=== PATIENT | female | born 1985 | race Caucasian/White ===

== ENCOUNTER 2019-06-04 15:48 | Emergency (ER) | payer OTHER ==
[~2019-06-04] VITALS: Ht 157.5 cm; Wt 49.9 kg
[2019-06-04 16:20] VITALS: BP 103/62
[2019-06-04] MEDS ORDERED: NEOMY/BACITR/POLYMYXIN OINT PACKET. TP ONE (16:30)
[2019-06-04] MEDS ORDERED: LIDOCAINE 1%/EPI 1:100,000 20 ML VIAL. SQ ONE (16:30)
[2019-06-04] MEDS ORDERED: HYDROcodone/APAP 7.5/325MG 1 TAB TABLET PO ONE (16:30)
[2019-06-04] MEDS ORDERED: DIPHTH,PERTUSS(ACELL),TET TOX 0.5 ML DISP.SYRIN. VAX IM ONE (16:45)
--- NOTE | 2019-06-04 17:59 | PHYS DOC ---
Past Medical History Past Medical History: No Pertinent History Past Surgical History: Alcohol Use: Occasionally Drug Use: None Adult General Chief Complaint Chief Complaint: ANIMAL BITE HPI HPI Patient is a 33 year old female accompanied by her partner, who presents to the emergency department with complaints of multiple abrasions and bites to her body after being mauled by a dog at work today. Patient states that a rescue boxer attacked her while she was caring for it at work this afternoon. She reports that her last tetanus shot was greater than 5 years ago. She complains of open wounds/bites to her left lower back, and left thigh. She complains of abrasions to her right abdomen, right mid back, right thigh, left thigh, and left lower leg. She currently rates her pain a 10 out of 10 on the pain scale, there are no alleviating factors. Review of Systems Review of Systems Constitutional: Denies fever or chills [] Eyes: Denies change in visual acuity, redness, or eye pain [] HENT: Denies nasal congestion or sore throat [] Respiratory: Denies cough or shortness of breath [] Cardiovascular: No additional information not addressed in HPI [] GI: Denies abdominal pain, nausea, vomiting, bloody stools or diarrhea [] : Denies dysuria or hematuria [] Musculoskeletal: Denies back pain or joint pain [] Integument: see HPI Neurologic: Denies headache, focal weakness or sensory changes [] Complete systems were reviewed and found to be within normal limits, except as documented in this note. Current Medications Current Medications Current Medications Medications (Trade) Dose Ordered Sig/Antonio Start Time Stop Time Status Last Admin Dose Admin Acetaminophen/ Hydrocodone Bitart (Lortab 7.5/325) 1 tab 1X ONCE 06/04/19 16:30 06/04/19 16:31 DC 06/04/19 16:38 1 TAB Diphtheria/ Tetanus/Acell Pertussis (Boostrix) 0.5 ml ONCE ONCE 06/04/19 16:45 06/04/19 16:47 DC 06/04/19 18:03 0.5 ML Lidocaine/ Epinephrine (LIDOCAINE 1%-EPI 1:100,000 Multi-Dose) 20 ml 1X ONCE 06/04/19 16:30 06/04/19 16:31 DC 06/04/19 16:38 20 ML Lorazepam (Ativan) 0.5 mg 1X ONCE 06/04/19 18:00 06/04/19 18:01 DC 06/04/19 18:03 0.5 MG Neomycin/ Polymyxin/ Bacitracin (Triple Antibiotic Ointment) 5 pkt 1X ONCE 06/04/19 16:30 06/04/19 16:31 DC 06/04/19 16:38 5 PKT Ondansetron HCl (Zofran Odt) 4 mg 1X ONCE 06/04/19 18:00 06/04/19 18:01 DC 06/04/19 18:03 4 MG Allergies Allergies Allergies Coded Allergies Type Severity Reaction Last Updated Verified No Known Drug Allergies 06/04/19 No Physical Exam Physical Exam Constitutional: Well developed, well nourished, moderate distress, non-toxic appearance. [] HENT: Normocephalic, atraumatic, bilateral external ears normal, nose normal. [] Eyes: PERRLA, EOMI, conjunctiva normal, no discharge. [] Neck: Normal range of motion, no stridor. [] Cardiovascular:Heart rate regular rhythm Lungs & Thorax: Respirations even and unlabored, no retractions, no respiratory distress Skin: Warm, dry; multiple abrasions with bruising noted to right lower abdomen, bilateral thighs, left lateral hip, left low back, and lower left leg; 3 open wounds noted to lateral left thigh: #1 distal measures 0.5 cm with active bleeding, #2 medial measures 1.5 cm no active bleeding, #3 proximal < 0.5 cm no active bleeding, 2 cm horizontal open wound to left low back no active bleeding Back: No bony tenderness Extremities: No bony tenderness or deformity, no cyanosis, no clubbing, ROM intact, no edema. [] Neurologic: Alert and oriented X 3, normal motor function, normal sensory function, no focal deficits noted. [] Psychologic: Affect anxious, judgement normal, mood normal. [] Current Patient Data Vital Signs Vital Signs Date Time Temp Pulse Resp B/P (MAP) Pulse Ox O2 Delivery O2 Flow Rate FiO2 06/04/19 16:38 16 98 Room Air 06/04/19 16:20 98.8 77 103/62 (76) 98.8 EKG EKG [] Radiology/Procedures Radiology/Procedures #1 Laceration Repair by me: Anesthesia: 1% lidocaine with epi locally Location: distal lateral left thigh Tendon/Joint/Nerves: No injury Foreign body: None detected after copious irrigation and exploration with surgical scrub and NS Technique: 1 loose Simple Interrupted Suture with 3-0 Ethilon Complexity: No subcutaneous sutures/mucosal repair/edge excision Post Closure Length: 0.5 cm #2 Laceration Repair by me: Anesthesia: 1% lidocaine with epi locally Location: medial lateral left thigh Tendon/Joint/Nerves: No injury Foreign body: None detected after copious irrigation and exploration with surgical scrub and NS Technique: 2 loose Simple Interrupted Sutures with 3-0 Ethilon Complexity: No subcutaneous sutures/mucosal repair/edge excision Post Closure Length: 1.5 cm #3 Laceration Repair by me: Anesthesia: 1% lidocaine with epi locally Location: left lower back Tendon/Joint/Nerves: No injury Foreign body: None detected after copious irrigation and exploration with surgical scrub and NS Technique: 2 loose Simple Interrupted Sutures with 3-0 Ethilon Complexity: No subcutaneous sutures/mucosal repair/edge excision Post Closure Length: 2 cm Patient's bleeding was easily controlled in the department and there is no indication of anemia. No evidence of compartment syndrome, neurologic injury, vascular injury, open j oint, tendon laceration, or foreign body. Patient is appropriate for outpatient follow up. Course & Med Decision Making Course & Med Decision Making Pertinent Labs and Imaging studies reviewed. (See chart for details) [] Dragon Disclaimer Dragon Disclaimer This electronic medical record was generated, in whole or in part, using a voice recognition dictation system. Departure Departure Impression: Primary Impression: Dog bite of multiple sites of left lower extremity Additional Impressions: Dog bite of right thigh without complication Dog bite of left hip Dog bite of multiple sites of right lower extremity Dog bite of multiple sites Need for Tdap vaccination Disposition: 01 HOME, SELF-CARE Condition: STABLE Referrals: NO PCP (PCP) Patient Instructions: Animal Bite, [id number], VIS, Tetanus, Diphtheria, and Pertussis (Tdap) - CDC Additional Instructions: Fill the prescriptions and use them as directed. Keep the areas clean and dry, change the dressings twice daily and as needed and apply antibiotic ointment. Apply ice to sore areas as needed for comfort. Return to the ER in 10 days to have sutures removed, sooner if you develop a fever, redness, warmth, or pus drainage from the sites. Scripts Hydrocodone Bit/Acetaminophen (HYDROCODONE-APAP 5-325 ) 1 Tab Tablet 1 TAB PO PRN Q6HRS PRN for PAIN for 3 Days, #12 TAB 0 Refills Prov: SHORTY ROBERTSON APRN 06/04/19 Amoxicillin/Potassium Clav (AUGMENTIN 875-125 TABLET) 1 Each Tablet 1 TAB PO BID, #14 TAB 0 Refills Prov: SHORTY ROBERTSON APRN 06/04/19 Problem Qualifiers Primary Impression: Dog bite of multiple sites of left lower extremity Encounter type: initial encounter Qualified Codes: S81.852A - Open bite, left lower leg, initial encounter; W54.0XXA - Bitten by dog, initial encounter Additional Impressions: Dog bite of right thigh without complication Encounter type: initial encounter Qualified Codes: S71.151A - Open bite, right thigh, initial encounter; W54.0XXA - Bitten by dog, initial encounter Dog bite of left hip Encounter type: initial encounter Qualified Codes: S71.052A - Open bite, left hip, initial encounter; W54.0XXA - Bitten by dog, initial encounter Dog bite of multiple sites of right lower extremity Encounter type: initial encounter Qualified Codes: S81.851A - Open bite, right lower leg, initial encounter; W54.0XXA - Bitten by dog, initial encount er SHORTY ROBERTSON APRN Jun 04, 2019 17:59
[2019-06-04] MEDS ORDERED: ONDANSETRON ODT 4 MG TAB.RAPDIS. PO ONE (18:00)
[2019-06-04] MEDS ORDERED: LORazepam 0.5 MG TABLET PO ONE (18:00)
[2019-06-04] MEDS ORDERED: AMOX1TAB61 PO (18:08)
[2019-06-04] MEDS ORDERED: HYDR-2761 PO (18:08)
== END 2019-06-04 18:47 | disposition home or self-care (01) ==
LOC: ER 15:48
DX: S71.151A Open bite, right thigh, initial encounter (principal); S71.052A Open bite, left hip, initial encounter; S81.851A Open bite, right lower leg, initial encounter; S81.852A Open bite, left lower leg, initial encounter; W54.0XXA Bitten by dog, initial encounter; Y93.89 Activity, other specified; Y92.89 Other specified places as the place of occurrence of the external cause; Y99.8 Other external cause status
CPT/HCPCS: 12002; 90471; 90715; 96372; 99284; J3490; Q0162

== ENCOUNTER 2019-06-11 15:19 | Emergency (ER) | payer OTHER ==
[~2019-06-11] VITALS: Ht 162.6 cm; Wt 49.9 kg
[~2019-06-11 15:19] MED LIST: AMOX1TAB61 PO; HYDR-2761 PO
[2019-06-11 16:01] VITALS: BP 132/92
[2019-06-11] MEDS ORDERED: TRAM50TA PO (16:26)
--- NOTE | 2019-06-11 16:26 | PHYS DOC ---
Past Medical History Past Medical History: No Pertinent History Past Surgical History: Alcohol Use: Occasionally Drug Use: None Adult General Chief Complaint Chief Complaint: WOUND RECHECK/SUTURE REMOVAL HPI HPI Patient is a 33 year old Female who presents with on June 04 was attacked by a dog and had 3 different lacerations that were loosely sutured together. Patient has many bruises over her body that are healing. Patient states that she does not like to take the pain medication she is in a lot of pain especially when walking still due to the bruising. She finished Augmentin yesterday. Review of Systems Review of Systems Constitutional: Denies fever or chills [] Musculoskeletal: Denies back pain or joint pain [] Integument:3 lacerations with sutures in place. Denies rash or skin lesions [] Neurologic: Denies headache, focal weakness or sensory changes [] All other systems were reviewed and found to be within normal limits, except as documented in this note. Current Medications Current Medications Current Medications Medications (Trade) Dose Ordered Sig/Antonio Start Time Stop Time Status Last Admin Dose Admin Acetaminophen/ Hydrocodone Bitart (Lortab 5/325) 1 tab 1X ONCE 06/11/19 17:45 06/11/19 17:46 DC 06/11/19 17:41 1 TAB Ondansetron HCl (Zofran Odt) 4 mg 1X ONCE 06/11/19 17:45 06/11/19 17:46 DC 06/11/19 17:41 4 MG Allergies Allergies Allergies Coded Allergies Type Severity Reaction Last Updated Verified No Known Drug Allergies 06/04/19 No Physical Exam Physical Exam Constitutional: Well developed, well nourished, no acute distress, non-toxic appearance. [] Skin: 3 laceration areas that are healing and sutures in place. Egdes approximated. Large healing hematomas to Left lateral leg and posterior left leg. Warm, dry, no erythema, no rash. [] Back: No tenderness, no CVA tenderness. [] Extremities: No tenderness, no cyanosis, no clubbing, ROM intact, no edema. [] Neurologic: Alert and oriented X 3, normal motor function, normal sensory function, no focal deficits noted. [] Psychologic: Affect normal, judgement normal, mood normal. [] Current Patient Data Vital Signs Vital Signs Date Time Temp Pulse Resp B/P (MAP) Pulse Ox O2 Delivery O2 Flow Rate FiO2 9/5/19 16:01 98.4 104 18 132/92 (105) 97 Room Air 98.4 EKG EKG [] Radiology/Procedures Radiology/Procedures [] Impressions: [facility] [address] [place] [address] IMAGING REPORT Signed PATIENT: HILDA THIBODEAUX MACCOUNT: [id number] : 1985 LOCATION: ER AGE: 33 SEX: F EXAM STATUS: REG ER ORD. PHYSICIAN: HIPOLITO HOWARD APRN REASON: LEFT LATERAL THIGH WOUND OR POSSIBLE ABSCESS PROCEDURE: EXT NON VASC LEFT Targeted ultrasound of the left thigh HISTORY: Left lateral thigh wound or abscess, dogbite June 04. FINDINGS: Targeted ultrasound at the area of concern demonstrates a complex fluid collection measuring 8.8 x 4.9 x 1.2 cm. Located between 10 and 15 mm deep to the skin surface. No significant hypervascularity associated with the lesion. IMPRESSION: Complex collection at the area of concern, nonspecific but most likely a hematoma or abscess. Electronically signed by: Remberto Willoughby MD (06/11/2019 6:44 PM) [facility] DICTATED and SIGNED BY: REMBERTO WILLOUGHBY MD DATE: 06/11/19 184 Course & Med Decision Making Course & Med Decision Making Patient is a 33 year old Female who presents with on June 04 was attacked by a dog and had 3 different lacerations that were loosely sutured together. Patient has many bruises over her body that are healing. Patient states that she does not like to take the pain medication she is in a lot of pain especially when walking still due to the bruising. There is a half a baseball rounded sized firm tender hematoma to lateral left leg with bruising around it. She finished Augmentin today. Ambulatory with a steady gait. Alert and oriented. Patient has several large healing hematomas to the left lateral leg and left lower back. Laceration areas are healed with edges together. There is a small amount of pinkness of healing skin right around the laceration area is very small. There is no drainage, redness, warmth or signs of infection. I did educate patient about signs of infection again and when to come back. Patient states her mother gave her a tramadol and it seemed to help her pain and not make her as drugged up feeling. Patient rating her sharp/ aching pain an 8 out of 10 especially when she is up and moving. Sutures removed. After removing sutures, the 1.5cm laceration to the left lateral leg has reopened and when this happened a small amount of pus came out of wound. I have discussed this patient with Dr Sue. She states to get a US to check for abscess. I have also ordered a US to make sure there is no abscess forming. US shows Complex collection at the area of concern, nonspecific but most likely a hematoma or abscess. I have discussed findings with Dr Sue and she states to start her on Keflex and have her come back in 48 hours for a wound recheck. Dragon Disclaimer Dragon Disclaimer This electronic medical record was generated, in whole or in part, using a voice recognition dictation system. Departure Departure Impression: Primary Impression: Visit for suture removal Disposition: 01 HOME, SELF-CARE Condition: STABLE Referrals: NO PCP (PCP) Patient Instructions: Suture Removal Additional Instructions: Come back in 48 hours for a wound recheck. Keep wounds covered. Take pain medication as prescribed. Scripts Cephalexin (KEFLEX) 500 Mg Capsule 500 MG PO QID for 7 Days, #28 CAP Prov: HIPOLITO HOWARD APRN 06/11/19 Tramadol Hcl (TRAMADOL HCL) 50 Mg Tablet 50 MG PO Q6HRS PRN for PAIN, #10 TAB Prov: HIPOLITO HOWARD APRN 06/11/19 HIPOLITO HOWARD APRN Jun 11, 2019 16:26
[2019-06-11] MEDS ORDERED: HYDROcodone/APAP 5/325MG 1 TAB TABLET PO ONE (17:45)
[2019-06-11] MEDS ORDERED: ONDANSETRON ODT 4 MG TAB.RAPDIS. PO ONE (17:45)
--- NOTE | 2019-06-11 18:47 | RAD ---
Targeted ultrasound of the left thigh HISTORY: Left lateral thigh wound or abscess, dogbite June 04. FINDINGS: Targeted ultrasound at the area of concern demonstrates a complex fluid collection measuring 8.8 x 4.9 x 1.2 cm. Located between 10 and 15 mm deep to the skin surface. No significant hypervascularity associated with the lesion. IMPRESSION: Complex collection at the area of concern, nonspecific but most likely a hematoma or abscess. Electronically signed by: Remberto Willoughby MD (06/11/2019 6:44 PM) [facility]
[2019-06-11] MEDS ORDERED: CEPH-264 PO (19:03)
== END 2019-06-11 19:16 | disposition home or self-care (01) ==
LOC: ER 15:19
DX: S81.812D Laceration without foreign body, left lower leg, subsequent encounter (principal); S30.0XXD Contusion of lower back and pelvis, subsequent encounter; W54.0XXD Bitten by dog, subsequent encounter
CPT/HCPCS: 76881; 99284; Q0162

== ENCOUNTER 2019-06-14 09:36 | Emergency (ER) | payer OTHER ==
[~2019-06-14] VITALS: Ht 157.5 cm; Wt 49.9 kg
[~2019-06-14 09:36] MED LIST changes: +CEPH-264 PO; +TRAM50TA PO
[2019-06-14 09:54] VITALS: BP 122/76
[2019-06-14] MEDS ORDERED: LIDOCAINE 2% 20 ML VIAL. IJ ONE (10:30)
--- NOTE | 2019-06-14 10:32 | PHYS DOC ---
Past Medical History Past Medical History: No Pertinent History Past Surgical History: Additional Information: 10/08-12/08 ppd Alcohol Use: Occasionally Drug Use: None Adult General Chief Complaint Chief Complaint: WOUND RECHECK/SUTURE REMOVAL HPI HPI Patient is a 33 year old female that presents to wound check on her left thigh. The patient was originally seen on June 04 for dog bite and had sutures placed in the animal bite and the 3 puncture wounds. The patient was placed on Augmentin at that time and then return for suture removal this past . Patient had a accumulation under the wound at that time ultrasound was performed as suggested it was either a abscess, or a collection of hematoma. The patient was told at that time to come back in 2 days for another wound check. The patient started Keflex on and is taken 2 days worth of Keflex so far. The abscess seems to be stable and about the same however it is not improving. States her pain at this time is 2 out of 10 in severity and sharp. The patient has been taking tramadol at home for pain. Review of Systems Review of Systems Constitutional: Denies fever or chills [] Eyes: Denies change in visual acuity, redness, or eye pain [] HENT: Denies nasal congestion or sore throat [] Respiratory: Denies cough or shortness of breath [] Cardiovascular: No additional information not addressed in HPI [] GI: Denies abdominal pain, nausea, vomiting, bloody stools or diarrhea [] : Denies dysuria or hematuria [] Musculoskeletal: Denies back pain or joint pain [] Integument: Reports abscess. Neurologic: Denies headache, focal weakness or sensory changes [] Endocrine: Denies polyuria or polydipsia [] Complete systems were reviewed and found to be within normal limits, except as documented in this note. Current Medications Current Medications Current Medications Medications (Trade) Dose Ordered Sig/Antonio Start Time Stop Time Status Last Admin Dose Admin Lidocaine HCl 20 ml 1X ONCE 06/14/19 10:30 06/14/19 10:31 DC Allergies Allergies Allergies Coded Allergies Type Severity Reaction Last Updated Verified No Known Drug Allergies 06/04/19 No Physical Exam Physical Exam Constitutional: Well developed, well nourished, no acute distress, non-toxic appearance. [] HENT: Normocephalic, atraumatic, bilateral external ears normal, oropharynx moist, no oral exudates, nose normal. [] Eyes: PERRLA, EOMI, conjunctiva normal, no discharge. [] Neck: Normal range of motion, no tenderness, supple, no stridor. [] Cardiovascular:Heart rate regular rhythm, no murmur [] Lungs & Thorax: Bilateral breath sounds clear to auscultation [] Abdomen: Bowel sounds normal, soft, no tenderness, no masses, no pulsatile masses. [] Skin: Bruising to left thigh with 3 puncture wounds and half baseball size swelling. Warm to touch. Also has bruising and abrasions on left upper thigh and back. Back: No tenderness, no CVA tenderness. [] Extremities: No tenderness, no cyanosis, no clubbing, ROM intact, no edema. [] Neurologic: Alert and oriented X 3, normal motor function, normal sensory function, no focal deficits noted. [] Psychologic: Affect normal, judgement normal, mood normal. [] Current Patient Data Vital Signs Vital Signs Date Time Temp Pulse Resp B/P (MAP) Pulse Ox O2 Delivery O2 Flow Rate FiO2 06/14/19 09:54 99.1 83 18 122/76 (91) 98 Room Air 99.1 EKG EKG [] Radiology/Procedures Radiology/Procedures Indication: abscess Procedure: The patient was positioned appropriately. Local anesthesia was lidocaine 2%. An incision was then made over the apex of the lesion and copious material was expressed. The drainage cavity was irrigated. The patient tolerated the procedure well. Course & Med Decision Making Course & Med Decision Making Pertinent Labs and Imaging studies reviewed. (See chart for details) Will perform I/D on abscess. Performed I/D on abscess. Will place on Doxycycline and Clindamycin and D/c home. Dragon Disclaimer Dragon Disclaimer This electronic medical record was generated, in whole or in part, using a voice recognition dictation system. Departure Departure Impression: Primary Impression: Dog bite of left hip Additional Impression: Abscess Disposition: HOME, SELF-CARE Condition: STABLE Referrals: NO PCP (PCP) Patient Instructions: Abscess, Abscess, Care After Additional Instructions: Thank you for visiting [facility]. We appreciate you trusting us with your care. If any additional problems come up don't hesitate to return to visit us. Please follow up with your primary care provider so they can plan additional care if needed and know about the problem that you had. If symptoms worsen come back to the Emergency Department. Any concerning symptoms that start such as chest pain, shortness of air, weakness or numbness on one side of the body, running high fevers or any other concerning symptoms return to the ER. You have been prescribed an antibiotic today to help fight your infection. Please take all of the antibiotic as directed. Scripts Clindamycin Hcl (CLINDAMYCIN HCL) 150 Mg Capsule 450 MG PO TID for 7 Days, #63 CAP Prov: TAMELA MCFARLAND APRN 06/14/19 Doxycycline Hyclate (DOXYCYCLINE HYCLATE) 100 Mg Tablet. 1 TAB PO BID for 7 Days, #14 TAB Prov: TAMELA MCFARLAND APRN 06/14/19 Problem Qualifiers Primary Impression: Dog bite of left hip Encounter type: subsequent encounter Qualified Codes: S71.052D - Open bite, left hip, subsequent encounter; W54.0XXD - Bitten by dog, subsequent encounter TAEMLA MCFARLAND APRN Jun 14, 2019 10:32
[2019-06-14] MEDS ORDERED: CLIN150C14 PO (11:16)
[2019-06-14] MEDS ORDERED: DOXY100T9 PO (11:16)
== END 2019-06-14 11:25 | disposition home or self-care (01) ==
LOC: ER 09:36
DX: S00-T88 Injury, poisoning and certain other consequences of external causes (principal); L02.416 Cutaneous abscess of left lower limb; F17.200 Nicotine dependence, unspecified, uncomplicated; W54.0XXD Bitten by dog, subsequent encounter
CPT/HCPCS: 10060; 99283